=== PATIENT | female | born 2000 | race Caucasian/White ===

== ENCOUNTER 2022-07-11 22:08 | Emergency (ER) | payer BC ==
[~2022-07-11] VITALS: Ht 165.1 cm; Wt 113.6 kg
[2022-07-11 22:13] VITALS: BP 144/97; TEMP 97.1
[2022-07-11] MEDS ORDERED: CRUTCHES MC (22:46)
[2022-07-11 23:00] VITALS: PULSE 99
== END 2022-07-11 23:00 | disposition home or self-care (01) ==
LOC: COL.ER 22:08
DX: S83.005A Unspecified dislocation of left patella, initial encounter (principal); X50.0XXA Overexertion from strenuous movement or load, initial encounter; Y93.41 Activity, dancing
CPT/HCPCS: 31289; L1830; L1846